=== PATIENT | male | born 1980 | race African-American/Black ===

== ENCOUNTER 2018-03-06 17:40 | Emergency (ER) | payer SELFPAY ==
[~2018-03-06] VITALS: Ht 180.3 cm; Wt 100.0 kg
[2018-03-06 17:41] VITALS: Ht 180.3 cm; Wt 100.0 kg
[2018-03-06] MEDS ORDERED: PENICILLIN V P500 MG PO (18:45)
[2018-03-06 19:10] VITALS: BP 122/77
== END 2018-03-06 19:11 | disposition home or self-care (01) ==
LOC: D.ER 17:40
DX: J02.9 Acute pharyngitis, unspecified (principal)